=== PATIENT | female | born 1990 | race Caucasian/White ===

== ENCOUNTER → 2017-11-19 16:37 | Outpatient (CLI) | payer BC, SELFPAY ==
[2017-11-19 17:30] LABS: Basophils # 0.1 K/mm3 (0-0.2); Basophils % 0.8 % (0.1-2.0); Eosinophils # 0.1 K/mm3 (0.0-0.4); Eosinophils % 1.1 % (0.1-12.0); Hematocrit 39.2 % (37.0-47.0); Hemoglobin 12.9 g/dL (12.2-16.2); Lymphocytes # 2.6 K/mm3 (0.7-4.5); Lymphocytes % 27.2 K/mm3 (10-50); Mean Corpuscular HGB Conc 32.8 g/dL (31.8-35.4); Mean Corpuscular Hemoglobin 29.4 pg (27.0-31.2); Mean Corpuscular Volume 89.6 fl (81-99); Mean Platelet Volume 8.5 fl (7.4-10.4); Monocytes # 0.4 K/mm3 (0.1-1.0); Monocytes % 3.8 % (1.7-9.3); Neutrophils # 6.3 K/mm3 (1.8-7.8); Neutrophils % 67.1 % (37.0-80.0); Platelet Count 212 K/mm3 (142-424); Red Blood Count 4.38 M/mm3 (4.20-5.40); Red Cell Distribution Width 12.3 % (11.5-17.5); White Blood Count 9.5 K/mm3 (4.8-10.8)
[2017-11-19 17:33] LABS: Activated Partial Thrombo Time 27.7 seconds (23.6-34.0); Fibrinogen 245 mg/dL (204-500); INR 1.04 (0.9-1.1); Prothrombin Time 11.2 seconds (9.4-11.8)
[2017-11-19 18:04] LABS: D-Dimer 141 (0-400)
[2017-11-19 18:39] LABS: Alanine Aminotransferase 14 U/L (12-78); Anion Gap 12.7 mEq/L (5-15); Aspartate Amino Transferase 13 U/L (15-37); Blood Urea Nitrogen 6 mg/dL (7-18); Carbon Dioxide 25 mmol/L (21.0-32.0); Chloride 102 mmol/L (98-107); Creatinine,Serum 0.57 mg/dL (0.55-1.02); Estimated Glomerular Filt Rate > 60 ml/min (>60); GFR (African American) > 60 ML/MIN (>60); Glucose 93 mg/dL (74-106); Potassium 3.7 mmoL/L (3.5-5.1); Sodium 136 mmol/L (136-145); Uric Acid 2.1 mg/dL (2.6-7.2)
[2017-11-21 17:16] LABS: HIV Screen 4th Generation wRfx Non Reactive (Non Reactive); Hepatitis C Antibody <0.1 s/co ratio (0.0-0.9)
== END ==
PROVIDERS: PCP Nurse Practitioner Obstetrics & Gynecology; Visit Provider Nurse Practitioner Obstetrics & Gynecology
DX: Z34.80 Encounter for supervision of other normal pregnancy, unspecified trimester (principal)
CPT/HCPCS: 36415; 80048; 84450; 84460; 84550; 85025; 85378; 85384; 85610; 85730; 86703; 86850; 87380; G0432

== ENCOUNTER → 2018-01-20 14:40 | Outpatient (CLI) | payer BC, SELFPAY ==
--- NOTE | 2018-01-20 14:45 | US_ITS ---
US OB /maternal detail: INDICATION: ITS.REASON: US OB Complete ORDERING PHYSICIAN: Carlos Lopez MD PATIENT AGE: 27 years TECHNIQUE: ultrasound transabdominal scanning. COMPARISON: No previous relevant studies. FINDINGS: Single viable intrauterine gestation. cephalic position. Placenta: posterior placenta grade 1. There is adequate amount fluid. The cervix appears satisfactory. Closed and measuring 4 cm in length. Complete survey performed and was unremarkable on the submitted images as in PACS. No discrete anomalies identified on survey imaging by technologist. Active fetus. Three-vessel cord with satisfactory umbilical cord insertion. 4- chamber heart noted. Survey of brain & ventricles. Face and neck survey unremarkable. Diaphragm and chest views unremarkable. Abdomen: Both kidneys noted and unremarkable. Stomach noted and satisfactory. Spine: Survey of the spine satisfactory with no anomalies identified nor imaged. Both arms and legs noted. Amniotic Fluid: Adequate. Maternal adnexa: No significant findings. Measurements: Average ultrasound age 21w0d. Gestational Age 21w1d. Estimated due date by ultrasound age 0706/02/2018. Estimated weight 400 grams. This is 67 percentile based on last menstrual period BPD = 21w0d OFD = 21w1d HC = 20w2d AC = 22w1d FL = 20w2d Heart Rate = 144 Cerebellum = 20w2d Humerus = 21w2d HC/AC is 1.04( 1.09-1.26). CI is 78% (70-86%). FL/BPD is 66%. FL/AC is 19%. IMPRESSION: Single live fetus in cephalic presentation with average ultrasound age of 21 weeks and 0 days with an estimated due date of 06/02/2018. Fetus is active and anatomy seen within normal limits. Please see above for detail.
== END ==
PROVIDERS: Family Provider Internal Medicine; PCP Nurse Practitioner Obstetrics & Gynecology; Visit Provider Nurse Practitioner Obstetrics & Gynecology
DX: Z36.0 Encounter for antenatal screening for chromosomal anomalies (principal)
CPT/HCPCS: 76811

== ENCOUNTER → 2018-05-04 17:46 | Outpatient (REF) | payer BC, SELFPAY | LOC: LAB 17:46 | PROVIDERS: Visit Provider Nurse Practitioner Obstetrics & Gynecology | DX: Z34.90 Encounter for supervision of normal pregnancy, unspecified, unspecified trimester (principal) | CPT/HCPCS: 86403 ==

== ENCOUNTER 2018-06-03 13:32 | Outpatient (CLI) | payer BC, SELFPAY ==
[2018-06-03 13:42] VITALS: BMI 24.3
[2018-06-03 14:02] VITALS: BP 123/80; PULSE 81; RESP 18; TEMP 36.9; O2SAT 99; BMI 24.4
== END 2018-06-03 16:25 | disposition home or self-care (01) ==
LOC: OBOUT 13:34 → OB 13:34
PROVIDERS: PCP Internal Medicine; Visit Provider Obstetrics & Gynecology
DX: O62.9 Abnormality of forces of labor, unspecified (principal); Z3A.39 39 weeks gestation of pregnancy
CPT/HCPCS: 59025

== ENCOUNTER 2018-06-06 11:48 | Inpatient (IN) ==
--- NOTE | 2018-06-06 12:26 | History & Physical Report ---
OB - H&P: HPI Antepartum - History of Present Illness Chief complaint: Contractions History of present illness: She is a 28-year-old 2 para 1 who is 39+ weeks gestational age. She began having contractions about 2 hours ago and came into labor and delivery. She is found to be 7 cm dilated. - History of Present Criteria for establishing EDC:: LMP confirmed by 1st trimester US Ultrasounds: normal 1st trimester US, normal mid trimester US Obstetrical complications: none H History I have reviewed the patient's past medical history: Yes Medical History: Denies:: Anxiety, Asthma, Diabetes Mellitus Type 2 Laterality Cases: Bilateral: Tonsillectomy Other Surgeries: Yes: Diagnostic Lap. No: Amputation: No Fractures: No - *Social History Smoking Status: Never smoker Alcohol Intake: never Substance Use Type: denies use - Psychiatric History Pschychiatric History:: Denies:: Anxiety *Family Hx:: No significant family history Review of Systems - Review of Systems Review of systems:: pertinent systems reviewed and negative unless documented below Meds Home Medications Medication Instructions Recorded Confirmed Type 1 tab PO QDAY 11/26/17 06/03/18 History vitamin,calcium,knbgtjjc-mrqe-vcqje acid tablet Ferrous Sulfate 325 mg PO DAILY 06/03/18 06/03/18 History Allergies Allergy/AdvReac Type Severity Reaction Status Date / Time No Known Allergies Allergy Verified 06/02/18 09:35 OB - H&P: Exam - Constitutional mild distress - Routine HEENT Exam Head: Present: normocephalic - Routine Neck Exam Present: supple - Routine Respiratory Exam Comments: She is not in any respiratory distress. - Routine Abdominal Exam Present: soft Comments: She is having regular contractions every 2 minutes. Her belly is gravid. OB - A/P Antepartum (1) Normal delivery Current visit: Yes Status: Acute - Additional Plan Plan: expectant management Additional Information:: She is in active labor risa every 2 minutes. The cervix is 7 cm Station -1 and 100% effaced. She has had a previous vaginal delivery and we will expect another delivery today.
--- NOTE | 2018-06-06 12:52 | Procedure Note ---
- Delivery Note Delivery Date:: 06/06/18 Delivery Time:: 12:37 Anesthesia Type: None Was labor medically induced?: No Induction method: none Infant delivered prior to 39 weeks?: No Justification for early elective delivery:: Active Labor at 1 minute: 7 at 5 minutes: 9 AF:: Clear fluid Delivery Procedure:: She is a 28-year-old 2 para 1 who was 40 weeks and 2 days gestational age. She came in in active labor. She progressed from 7 cm to fully dilated quickly and delivered spontaneously a liveborn female child at 12:37 PM in the afternoon of June 06, 2018. On deliver the head the anterior shoulder then delivered followed by the rest the infant's body atraumatically. The nasopharynx and oropharynx were bulb suctioned. We allowed the cord to continue to pulsate for approximately 30 seconds and then doubly clamped the cord. Cord was cut and the infant was then handed off to nurses who assigned Apgars of 7 at 1 minute and 9 at 5 minutes. The baby just required some stimulation and blow-by oxygen. We then obtained cord blood as well as cord gases. She received IV oxytocin and using gentle traction on the cord and countertraction the fundus I was able to easily deliver the placenta intact at 12:40 PM. She had a normal three-vessel cord. There were no perineal or vaginal lacerations. She plans to breast-feed. Estimated blood loss was approximately 400 cc. Placental Delivery Description: Spontaneous
[2018-06-06 13:00] LABS: Basophils # 0.1 K/mm3 (0-0.2); Basophils % 0.4 % (0.1-2.0); Eosinophils # 0.1 K/mm3 (0.0-0.4); Eosinophils % 0.4 % (0.1-12.0); Hematocrit 39.1 % (37.0-47.0); Hemoglobin 13.4 g/dL (12.2-16.2); Lymphocytes % 16.7 K/mm3 (10-50); Mean Corpuscular HGB Conc 34.3 g/dL (31.8-35.4); Mean Corpuscular Hemoglobin 32.3 pg (27.0-31.2); Mean Corpuscular Volume 93.9 fl (81-99); Mean Platelet Volume 8.9 fl (7.4-10.4); Monocytes # 0.5 K/mm3 (0.1-1.0); Monocytes % 3.9 % (1.7-9.3); Neutrophils # 9.2 K/mm3 (1.8-7.8); Neutrophils % 78.6 % (37.0-80.0); Platelet Count 188 K/mm3 (142-424); Red Blood Count 4.16 M/mm3 (4.20-5.40); White Blood Count 11.7 K/mm3 (4.8-10.8)
[2018-06-06 15:22] LABS: Basophils % 0.2 % (0.1-2.0); Eosinophils % 0.1 % (0.1-12.0); Hematocrit 36.1 % (37.0-47.0); Hemoglobin 12.1 g/dL (12.2-16.2); Lymphocytes # 1.3 K/mm3 (0.7-4.5); Lymphocytes % 7.6 K/mm3 (10-50); Mean Corpuscular HGB Conc 33.5 g/dL (31.8-35.4); Mean Corpuscular Hemoglobin 31.1 pg (27.0-31.2); Mean Platelet Volume 9.3 fl (7.4-10.4); Monocytes # 0.4 K/mm3 (0.1-1.0); Monocytes % 2.3 % (1.7-9.3); Neutrophils # 14.7 K/mm3 (1.8-7.8); Neutrophils % 89.7 % (37.0-80.0); Platelet Count 177 K/mm3 (142-424); Red Blood Count 3.89 M/mm3 (4.20-5.40); Red Cell Distribution Width 12.9 % (11.5-17.5); White Blood Count 16.3 K/mm3 (4.8-10.8)
[2018-06-06 15:46] LABS: Lymphocytes % 7 % (10-50); Monocytes % 3 % (2-9); Neutrophils % 89 % (42-76); RBC Morphology Normal; Total Cells Counted 100
[2018-06-07 06:49] LABS: Hematocrit 37.1 % (37.0-47.0); Hemoglobin 12.3 g/dL (12.2-16.2)
--- NOTE | 2018-06-07 09:56 | Progress Note ---
Internal Medicine - PN: Subj *Date: 06/07/18 *Time: 09:54 Interval history: She continues to do well this morning. She is eating and drinking and ambulating. She is breast-feeding. Her lochia is normal. Exam Vital signs and Labs for Last 24 Hours: Temp Pulse Resp BP Pulse Ox 98.4 F 65 18 100/57 98 06/06/18 19:53 06/06/18 19:53 06/06/18 19:53 06/06/18 19:53 06/06/18 19:53 Laboratory Results - last 24 hr 06/06/18 12:30: WBC 11.7 H, RBC 4.16 L, Hgb 13.4, Hct 39.1, MCV 93.9, MCH 32.3 H , MCHC 34.3, RDW 13.0, Plt Count 188, MPV 8.9, Neut % (Auto) 78.6, Lymph % (Auto ) 16.7, Gove % (Auto) 3.9, Eos % (Auto) 0.4, Baso % (Auto) 0.4, Neut # (Auto) 9.2 H, Lymph # (Auto) 2.0, Gove # (Auto) 0.5, Eos # (Auto) 0.1, Baso # (Auto) 0.1 06/06/18 12:30: Blood Type O Positive, Antibody Screen Negative 06/06/18 12:50: Cord ABG pH 7.32 L 06/06/18 15:05: WBC 16.3 H D, RBC 3.89 L, Hgb 12.1 L, Hct 36.1 L, MCV 93.0, MCH 31.1, MCHC 33.5, RDW 12.9, Plt Count 177, MPV 9.3, Neut % (Auto) 89.7 H, Lymph % (Auto) 7.6 L, Gove % (Auto) 2.3, Eos % (Auto) 0.1, Baso % (Auto) 0.2, Neut # ( Auto) 14.7 H, Lymph # (Auto) 1.3, Gove # (Auto) 0.4, Eos # (Auto) 0.0, Baso # ( Auto) 0.0, Total Counted 100, Neutrophils % (Manual) 89 H, Lymphocytes % (Manual ) 7 L, Atypical Lymphs % 1.0, Monocytes % (Manual) 3, Platelet Estimate Normal, RBC Morphology Normal 06/07/18 06:01: Hgb 12.3, Hct 37.1 I & O for Last 24 hours: Intake & Output 06/04/18 06/05/18 06/06/18 06/07/18 11:59 11:59 11:59 11:59 Weight 150 lb - Constitutional no acute distress Assessment and Plan (1) Normal delivery Current visit: Yes Status: Acute Category: Medical Code(s): O80 - Encounter for full-term uncomplicated delivery - Assessment and plan all Dx Assessment and Plan for all problems:: She is doing very well. She is breast-feeding. We will plan to send her home tomorrow.
--- NOTE | 2018-06-08 08:57 | Discharge Summary ---
General - General Admission date:: 06/06/18 Discharge date: 06/08/18 HPI HPI: She is a 28-year-old 2 now para 2 who was 40+ weeks gestational age. She came in in active labor and was found to be 7 cm dilated. Hospital Course Hospital Course: She progressed to full dilation and delivered spontaneously a liveborn female child at 1237 on the afternoon of June 06, 2018. The baby weighed 8 lbs. 11 oz. and was 20 inches long. She had Apgars of 7 at 1 minute and 9 at 5 minutes. There were no perineal or vaginal lacerations. She has done well and has remained afebrile throughout her hospitalization. She is eating and drinking and ambulating. She is breast- feeding. She has O+ blood, she is rubella immune and was group B streptococcus negative. She is discharged home to follow-up with me in approximately 2 weeks time. She is taking jexk-xyi-bpaueig analgesics occasionally. Objective Vital signs: Temp Pulse Resp BP Pulse Ox 98.4 F 68 16 111/65 97 06/07/18 20:11 06/07/18 20:11 06/07/18 20:11 06/07/18 20:11 06/07/18 20:11 no acute distress DS: Diagnosis - Discharge Diagnosis (1) Normal delivery Status: Acute Discharge Plan - Patient Discharge Instructions ACTIVITY: No heavy lifting DIET: continue same diet - Follow up Plan Disposition: Home, Self-[facility] Medications: Home Medications Medication Instructions Recorded Confirmed Type 1 tab PO DAILY 11/26/17 06/07/18 History vitamin,calcium,zfdsxibd-bgrs-qpcvo acid tablet Ferrous Sulfate 325 mg PO DAILY 06/03/18 06/06/18 History Prescriptions/Medication Reconciliation: Continue vitamin,calcium,ssoyzbzj-obvl-oddyp acid tablet 1 tab PO DAILY Ferrous Sulfate 325 mg PO DAILY
[2018-06-08 11:17] VITALS: BP 108/57
[2018-06-09 06:25] LABS: HIV Screen 4th Generation wRfx Non Reactive (Non Reactive)
[2018-06-10 06:15] LABS: Rapid Plasma Reagin Ab Titer Non Reactive (NonRea<1:1)
[2018-06-10 06:16] LABS: Hepatitis B Surface Antigen Negative (Negative)
== END 2018-06-08 10:30 | disposition home or self-care (01) ==
LOC: OBOUT 11:48 → OB 11:51 → OBOUT 12:12 → OB 12:14
PROVIDERS: ADMIT Nurse Practitioner Obstetrics & Gynecology; ATTEND Nurse Practitioner Obstetrics & Gynecology

== ENCOUNTER → 2020-10-26 09:49 | Outpatient (POV) | payer BC, SELFPAY | PROVIDERS: Visit Provider Audiologist | DX: Z00.00 Encounter for general adult medical examination without abnormal findings (principal) ==

== ENCOUNTER 2021-11-27 09:20 | Emergency (ER) | payer BC, SELFPAY ==
[2021-11-27 10:42] VITALS: BP 110/73; PULSE 72; RESP 18; TEMP 37.2; O2SAT 99; BMI 19.3
--- NOTE | 2021-11-27 10:48 | HMH.EDUTC ---
[facility] – [place] Disposition Clinical Impression: Viral upper respiratory illness Disposition: Home, Self-Care Condition on Discharge: Good Instructions: DI for Viral Upper Respiratory Infection -- Adult, DI for Nasal Congestion Additional Instructions: *Monitor Temp, Over the counter Motrin or Tylenol as directed/as needed Tylenol every 4 hours and Motrin every 6 hours (as long as your family doctor has told you that you can take it) for fever or pain. and straight to ER if unable to lower temp less than 101.0 after medication given *Warm salt water gargles may help to soothe the throat *Throat Lozenges *Warm fluids like tea with honey may help to soothe the throat *Sleep elevated *Humidifier/Vaporizer *Flonase 2 sprays in each nostril daily but be aware that it may take 2-3 days before you notice improvement Your throat swab was sent for culture. Those results are typically sent to your primary care. Be sure to follow up in 2-3 days with your family doctor/primary care physician if no improvement so they can review those result and treat if necessary. If you don?t have a primary care doctor, I recommend you get one but in the mean time, you will have to return to a walk in clinic Follow up IMMEDIATELY for new or worsening symptoms or no Noticeable improvement over the next 48-72 hours. 911 for difficulty breathing or swallowing You were tested for today for COVID19 your test result should be back in the next 24-48 hours, you check your results on the [facility] my health portal if you have trouble logging on or seeing your results you may call You was given a handout with instructions for Self Quarantine and Self isolation for while you wait on test results and what to do if they are positive If you are positive the Health Dept will be contacting you also Make sure to take your Vitamins Vit. C Vit D and Zinc if you can take them Follow up with Eye Doctor for exam if you continued to have pain/pressure behind your eyes Prescriptions: Fluticasone Propionate [Flonase 50mcg nasal spray 16gm] 1 spr NS DAILY #1 each Transmission Status: Received by [facility] Referrals: David Campbell [Primary Care Provider] - As needed [facility] [Other] Forms: Work/School Release Time of Disposition: 11:02 Medical Decision Making - Jack Inquiry Pt receiving controlled substance: No Jack was queried for this patient: No Vital Signs: 11/27/21 10:42 11/27/21 11:14 Temperature 98.9 F 98.9 F Temperature Source Oral Pulse Rate 72 Pulse Rate [Left Radial] 72 Respiratory Rate 18 18 Blood Pressure 110/73 Blood Pressure [Left Arm] 110/73 Blood Pressure Mean [Left Arm] 85 Blood Pressure Source [Left Arm] Automatic Cuff Blood Pressure Position [Left Arm] Sitting 02 Sat by Pulse Oximetry 99 Oxygen Delivery Method Room Air - Lab Data Lab results reviewed: Yes: I reviewed the patient's lab results. Lab Results 11/27/21 10:40: Influenza Type A Ag Negative, Influenza Type B Ag Negative 11/27/21 10:40: Strep Scn Rapid Clinic Negative Orders (Tests/Meds): ORDERS Category Date Time Status Covid-19 Nasal PCR ([facility]) Routine Lab 11/27/21 10:40 Received Strep Screen Confirmation Stat Micro 11/27/21 10:40 Received [facility] UTC HPI - General Stated complaint: sore throat, cough, runny nose, PETERS Time Seen by Provider: 11/27/21 10:49 Mode of Arrival: Ambulatory Source of Information: Patient Limitations: No Limitations Description of Symptoms (Recalled from Triage Doc. by RN): C/O pain with eye movement, dull PETERS, sore throat, runny nose since Friday HEENT Symptoms (Recalled from RN notes): Yes (PETERS, sore throat, runny nose) Resp Symptoms (Recalled from RN notes): No Skin Symptoms (Recalled from RN notes): No MS Symptoms (Recalled from RN notes): No Functional Status (Recalled from RN notes): n/a - History of Present Illness Provider Complaint: Patient states that she started feeling bad on Friday with body aches an
[2021-11-27 10:55] LABS: UTC Influenza A Antigen Negative (Negative); UTC Influenza B Antigen Negative (Negative); UTC Strep Screen (Rapid) Negative (Negative)
[2021-11-27 11:14] VITALS: BP 110/73; PULSE 72; RESP 18; TEMP 37.2; O2SAT 99
== END 2021-11-27 11:15 | disposition home or self-care (01) ==
PROVIDERS: Emergency Provider Nurse Practitioner; PCP Internal Medicine
DX: U07.1 COVID-19 (principal)
CPT/HCPCS: 87804; 87880; 99203; C9803; G0463; U0003; U0005

== ENCOUNTER → 2022-01-22 10:27 | Outpatient (CLI) | payer BC, SELFPAY ==
--- NOTE | 2022-01-22 10:36 | US_ITS ---
FINAL REPORT CLINICAL HISTORY: for dates FINDINGS: US PREG /MATERNAL <14WKS ODAYS There is a single living intrauterine . A yolk sac is identified. Cardiac activity is confirmed at 157 beats per minute. [place]-rump length is 1.3 cm consistent with 7 weeks 4 days. The right ovary measures 3.0 x 2.4 x 2.4 cm. The left ovary measures 3.2 x 2.7 x 2.5 cm. There is a 2.3 cm mass in the left ovary that may represent a complex cyst/corpus luteum cyst. IMPRESSION: Single living intrauterine with an estimated gestational age of 7 weeks 5 days. 2.3 cm mass in the left ovary may represent a complex cyst/corpus luteum cyst. Reviewed, Interpreted and Dictated by Lizandro Serrano III, MD Transcribed by Beau Dugan Authenticated by Lizandro Serrano III, MD on 01/22/2022 12:29:49 PM [facility]
[2022-01-22 11:57] LABS: Basophils # 0.1 K/mm3 (0-0.2); Basophils % 1.3 % (0.1-2.0); Eosinophils # 0.1 K/mm3 (0.0-0.4); Eosinophils % 1.1 % (0.1-12.0); Hematocrit 37.8 % (37.0-47.0); Hemoglobin 12.6 g/dL (12.2-16.2); Lymphocytes # 1.8 K/mm3 (0.7-4.5); Lymphocytes % 20.5 % (10-50); Mean Corpuscular HGB Conc 33.3 g/dL (31.8-35.4); Mean Corpuscular Hemoglobin 31.6 pg (27.0-31.2); Mean Corpuscular Volume 94.8 fl (81-99); Mean Platelet Volume 10.1 fl (7.4-10.4); Monocytes # 0.4 K/mm3 (0.1-1.0); Monocytes % 4.3 % (1.7-9.3); Neutrophils # 6.2 K/mm3 (1.8-7.8); Neutrophils % 72.9 % (37.0-80.0); Platelet Count 207 K/mm3 (142-424); Red Blood Count 3.98 M/mm3 (4.20-5.40); Red Cell Distribution Width 13.2 % (11.5-17.5); White Blood Count 8.6 K/mm3 (4.8-10.8)
[2022-01-23 08:18] LABS: HIV Screen 4th Generation wRfx Non Reactive (Non Reactive)
[2022-01-23 11:14] LABS: Hepatitis B Surface Antigen Negative (Negative); Hepatitis C Antibody <0.1 s/co ratio (0.0-0.9); Rapid Plasma Reagin Ab Titer Non Reactive (NonRea<1:1)
[2022-01-24 07:35] LABS: HSV 2 IgG, Type Spec <0.91 index (0.00-0.90); Rubella Antibodies, IgG 3.96 index (Immune >0.99)
== END ==
PROVIDERS: PCP Internal Medicine; Visit Provider Nurse Practitioner Obstetrics & Gynecology
DX: Z34.90 Encounter for supervision of normal pregnancy, unspecified, unspecified trimester (principal)
CPT/HCPCS: 36415; 76801; 85025; 86592; 86695; 86703; 86762; 86790; 86850; 87340; 87380; G0432

== ENCOUNTER → 2022-04-22 09:32 | Outpatient (CLI) | payer BC, SELFPAY ==
--- NOTE | 2022-04-22 09:33 | US_ITS ---
FINAL REPORT CLINICAL HISTORY: US OB COMPLETE, 20wk+ Anatomy Scan FINDINGS: There is a single live intrauterine gestation. Presentation is cephalic. The cervix is closed and measures 3.6 cm. Placenta is anterior, grade 1. movement is noted. Heart rate is measured at 135 beats per minute. Three-vessel cord with satisfactory umbilical cord insertion. Four-chamber heart is noted. brain and ventricles are unremarkable. Chest and diaphragm are unremarkable. ABDOMEN: Both kidneys are unremarkable. Stomach is unremarkable. SPINE: No anomalies identified. AMNIOTIC FLUID: Appropriate amount. MEASUREMENTS: ULTRASOUND AGE: 21 weeks 0 days. GESTATION AGE: 20 weeks 3 days. ESTIMATED WEIGHT: 370 g GROWTH PERCENTILE: 60% BPD: 5.1 cm corresponding with 21 weeks 3 days. OFD: 6.5 cm corresponding with 21 weeks 4 days. HC: 18.3 cm corresponding with 20 weeks 5 days. AC: 15.9 cm corresponding with 21 weeks 1 days. FL: 3.3 cm corresponding with 20 weeks 2 days. CEREBELLUM: 2.1 cm corresponding with 20 weeks 6 days. HUMERUS: 3.2 cm corresponding with 20 weeks 5 days. HC/AC: 1.15 CI: 78% FL/BPD: 64% FL/AC: 20% IMPRESSION: Single living IUP with an ultrasound age of 21 weeks 0 days. No anomalies noted. Reviewed, Interpreted and Dictated by Lizandro Serrano III, MD Transcribed by Carol Morelos Authenticated and [facility]
== END ==
PROVIDERS: PCP Internal Medicine; Visit Provider Nurse Practitioner Obstetrics & Gynecology
DX: Z36.0 Encounter for antenatal screening for chromosomal anomalies (principal)
CPT/HCPCS: 76811

== ENCOUNTER → 2022-07-08 11:37 | Outpatient (CLI) | payer BC, SELFPAY ==
[2022-07-08 12:27] LABS: Basophils # 0.1 K/mm3 (0-0.2); Basophils % 0.6 % (0.1-2.0); Eosinophils # 0.1 K/mm3 (0.0-0.4); Eosinophils % 0.6 % (0.1-12.0); Hematocrit 37.5 % (37.0-47.0); Hemoglobin 11.9 g/dL (12.2-16.2); Lymphocytes # 1.8 K/mm3 (0.7-4.5); Lymphocytes % 17.7 % (10-50); Mean Corpuscular HGB Conc 31.6 g/dL (31.8-35.4); Mean Corpuscular Hemoglobin 31.8 pg (27.0-31.2); Mean Corpuscular Volume 100.5 fl (81-99); Monocytes # 0.4 K/mm3 (0.1-1.0); Monocytes % 4.1 % (1.7-9.3); Neutrophils # 7.9 K/mm3 (1.8-7.8); Neutrophils % 77.1 % (37.0-80.0); Platelet Count 184 K/mm3 (142-424); Red Blood Count 3.73 M/mm3 (4.20-5.40); White Blood Count 10.2 K/mm3 (4.8-10.8)
== END ==
PROVIDERS: PCP Internal Medicine; Visit Provider Nurse Practitioner Obstetrics & Gynecology
DX: N92.0 Excessive and frequent menstruation with regular cycle (principal)
CPT/HCPCS: 36415; 85025

== ENCOUNTER → 2022-08-15 08:24 | Outpatient (CLI) | payer BC, SELFPAY | PROVIDERS: Visit Provider Obstetrics & Gynecology | DX: Z34.90 Encounter for supervision of normal pregnancy, unspecified, unspecified trimester (principal); Z3A.35 35 weeks gestation of pregnancy | CPT/HCPCS: 86403 ==

== ENCOUNTER 2022-09-16 04:05 | Inpatient (IN) | payer BC, SELFPAY ==
[2022-09-16 03:42] VITALS: BP 104/61; PULSE 82; RESP 18; TEMP 36.8; O2SAT 100; BMI 25.2; BMI 25.3
[2022-09-16 04:15] LABS: Basophils # 0.1 K/mm3 (0-0.2); Eosinophils # 0.1 K/mm3 (0.0-0.4); Eosinophils % 0.7 % (0.1-12.0); Hematocrit 41.7 % (37.0-47.0); Hemoglobin 13.7 g/dL (12.2-16.2); Lymphocytes # 2.6 K/mm3 (0.7-4.5); Lymphocytes % 22.4 % (10-50); Mean Corpuscular HGB Conc 32.9 g/dL (31.8-35.4); Mean Corpuscular Hemoglobin 30.8 pg (27.0-31.2); Mean Corpuscular Volume 93.8 fl (81-99); Mean Platelet Volume 10.2 fl (7.4-10.4); Monocytes # 0.4 K/mm3 (0.1-1.0); Monocytes % 3.2 % (1.7-9.3); Neutrophils # 8.5 K/mm3 (1.8-7.8); Neutrophils % 72.7 % (37.0-80.0); Platelet Count 201 K/mm3 (142-424); Red Blood Count 4.45 M/mm3 (4.20-5.40); Red Cell Distribution Width 13.3 % (11.5-17.5); White Blood Count 11.7 K/mm3 (4.8-10.8)
--- NOTE | 2022-09-16 04:39 | P.HP_ITS ---
History of Present Illness *Admission Date: 09/16/22 *Reason for visit:: contractions *History of present illness: 32 yo @ 41 02/21 care at [facility]-- Dr. John PISANO 09/05/22 Presented in active labor with complete dilation AROM performed with meconium stained amniotic fluid [facility] Medical History Hemorrhoids Social History Smoking Status: Never smoker alcohol intake: current substance use type: denies use current occupational status: employed Travel in the last 8 weeks: None household members: family housing: house Review of Systems Constitutional Constitutional: Reports system reviewed and no additional complaints, except as documented and Denies headache(s) ENT Ears, Nose, Mouth, and Throat: Denies headache(s) *Genitourinary Genitourinary: Denies abnormal vaginal bleeding *Neurologic Neurologic: Denies headache(s) and Denies other visual disturbances Meds Home Medications and Allergies Home Medications Medication Instructions Recorded Confirmed Type prenat.vits,john,ebp-odtd-aryyy 1 tab PO DAILY 01/17/22 09/12/22 History New Prescriptions to Start Prescriptions: Allergies Allergy/AdvReac Type Severity Reaction Status Date / Time No Known Allergies Allergy Verified 09/12/22 08:34 Exam Data for Last 24 hours Vital signs and Labs for Last 24 Hours: Laboratory Results - last 24 hr 09/16/22 04:00: WBC 11.7 H, RBC 4.45, Hgb 13.7, Hct 41.7, MCV 93.8, MCH 30.8, MCHC 32.9, RDW 13.3, Plt Count 201, MPV 10.2, Neut % (Auto) 72.7, Lymph % (Auto) 22.4, Nicholas % (Auto) 3.2, Eos % (Auto) 0.7, Baso % (Auto) 1.0, Neut # (Auto) 8.5 H, Lymph # (Auto) 2.6, Nicholas # (Auto) 0.4, Eos # (Auto) 0.1, Baso # (Auto) 0.1 I & O for Last 24 hours: Intake & Output 09/13/22 09/14/22 09/15/22 09/16/22 11:59 11:59 11:59 11:59 Weight 156 lb Constitutional Constitutional: no acute distress *Routine HEENT Exam Head: Present normocephalic Eye: Absent conjunctival icterus or scleral injection ENT: Present mucous membranes moist *Routine Neck Exam Neck: Present supple *Routine Respiratory Exam Respiratory: Present CTA bilaterally; Absent respiratory distress *Routine Cardiovascular Exam Cardiovascular: Present RRR *Routine Abdominal Exam Abdominal: Present soft; Absent tenderness or distended *Routine Rectal Exam Rectal:: deferred *Routine Genitalia Exam Genitalia:: normal female Comment:: complete & +1 AROM with meconium stained amniotic fluid *Routine Extremities Exam Extremities: Present edema (1+) *Routine Skin Exam Skin: Present intact and dry *Routine Neurological Exam Neurological: Present alert and oriented X3 Assessment and Plan *Assessment and plan (1) 41 weeks gestation of : Status: Acute Category: Medical Code(s): O48.0 - Post-term ; Z3A.41 - 41 weeks gestation of (2) Post-dates : Status: Acute Category: Medical Code(s): O48.0 - Post-term (3) Active labor: Status: Acute Category: Medical Plan Admission for active labor at 41 47 status reassuring
--- NOTE | 2022-09-16 04:44 | EXP.DN ---
Delivery Note Delivery Date:: 09/16/22 Delivery Time:: 04:23 Anesthesia Type: None Was labor medically induced?: No Gestational age (weeks): 41 Infant delivered prior to 39 weeks?: No Infant Gender: Female at 1 minute: 9 at 5 minutes: 9 Delivery Procedure:: Spontaneous vaginal delivery of vigorous, live born female over intact perineum. Delivery uncomplicated No nuchal cord No shoulder dystocia with delivery Infant placed in MATT immediately after delivery, with standard nursing assessment performed Apgars: 9 & 9 Placenta spontaneously expressed and examined; noted to be complete/intact. Vulva, vagina, and cervix inspected; no lacerations present EBL: 300 cc All sponge/needle/instrument counts correct at conclusion of procedure Mother and stable to recovery Placental Delivery Description: Spontaneous
[2022-09-16 05:04] LABS: Coronavirus 19, PCR Not Detected (NotDetected); Influenza A, PCR Not Detected (NotDetected); Influenza B, PCR Not Detected (NotDetected)
[2022-09-16 08:56] VITALS: BP 123/69; PULSE 84; RESP 18; TEMP 36.8; O2SAT 98
[2022-09-16 16:20] VITALS: BP 104/62; PULSE 76; RESP 16; TEMP 36.8; O2SAT 98
[2022-09-17 08:38] LABS: Hematocrit 32.6 % (37.0-47.0); Hemoglobin 11.2 g/dL (12.2-16.2)
[2022-09-17 08:45] VITALS: BP 107/58; PULSE 71; RESP 18; TEMP 36.6; O2SAT 98
--- NOTE | 2022-09-17 08:56 | EXP.DC.SUM ---
General Admission date:: 09/16/22 Discharge date: 09/17/22 HPI HPI HPI: 32 yo @ 41 02/21 care at [facility]-- Dr. John PISANO 09/05/22 Presented in active labor with complete dilation AROM performed with meconium stained amniotic fluid Hospital Course Hospital Course Hospital Course: She arrived in active labor at 41 weeks and 4 days and was found to be fully dilated. She had an amniotomy with meconium stained fluid. She delivered spontaneously a liveborn female child at 4:24 AM on the morning of September 16, 2022. The baby was a liveborn female child weighing 9 pounds 7 ounces and she was 21 inches long. She had Apgars of 9 at 1 minute and 9 at 5 minutes. She has done well and has remained afebrile throughout her hospitalization. She is eating and drinking and ambulating. She is breast-feeding. Her lochia is normal. She has O+ blood, she is rubella immune and was group B streptococcus negative. Her steel tier is Dr. Kang. She is discharged home to follow-up with me in approximately 2 weeks time. She will continue with her vitamins and iron. She is given the usual instructions with suspected limiting her activity, driving and sexual activity. Her condition on discharge is stable and improved. Exam Data for Last 24 hours Vital signs and Labs for Last 24 Hours: Temp Pulse Resp BP Pulse Ox 98.2 F 76 16 104/62 L 98 09/16/22 16:20 09/16/22 16:20 09/16/22 16:20 09/16/22 16:20 09/16/22 16:20 Laboratory Results - last 24 hr 09/17/22 08:10: Hgb 11.2 L, Hct 32.6 L I & O for Last 24 hours: Intake & Output 09/14/22 09/15/22 09/16/22 09/17/22 11:59 11:59 11:59 11:59 Weight 157 lb Constitutional Constitutional: no acute distress *Routine HEENT Exam Head: Present normocephalic *Routine Respiratory Exam Respiratory: Present normal respiratory effort Results Data Completed and Pending Labs on day of discharge: Labs from last 24 hours 09/17/22 08:10 Hgb 11.2 L Hct 32.6 L DS: Diagnosis Discharge Diagnosis (1) 41 weeks gestation of : Status: Acute (2) Post-dates : Status: Acute (3) Active labor: Status: Acute (4) Normal delivery: Status: Acute Meds Home Medications and Allergies Home Medications Medication Instructions Recorded Confirmed Type prenat.vits,john,tby-cvtl-hbnwu 1 tab PO DAILY Diet supplement 01/17/22 09/16/22 History New Prescriptions to Start Prescriptions: Allergies Allergy/AdvReac Type Severity Reaction Status Date / Time No Known Allergies Allergy Verified 09/12/22 08:34 Discharge Plan Disposition Patient Disposition: Home, Self-Care Discharge Order Discharge Orders: Discharge Order (Routine); Ordered 09/17/22 Ordered By: Carlos Lopez Follow up Plan Prescriptions/Medication Reconciliation: Continued prenat.vits,john,awd-dlit-hgvfw Tablet 1 tab PO DAILY Problem Reconciliation Problems Reviewed?: Yes Patient Discharge Instructions ACTIVITY: No heavy lifting DIET: continue same diet Additional Instructions: Nothing in the vagina for 6 weeks No tub baths Drink plenty of fluids Patient Instructions: Depression, Hemorrhage, DI for Labor and Delivery, Vaginal , DI for Pre-eclampsia, H Post Discharge Instructions, Preventing the Spread of Coronavirus Discharge Instructions Providers Primary Care Provider: David Campbell Admit Provider: Niecy Chatterjee Attending Provider: Niecy Chatterjee
== END 2022-09-17 11:48 | disposition home or self-care (01) | DRG 807 ==
LOC: OBOUT 04:06 → OB 04:06
PROVIDERS: Admitting Provider Obstetrics & Gynecology; PCP Internal Medicine; Visit Provider Obstetrics & Gynecology
DX: O48.0 Post-term pregnancy (principal); Z37.0 Single live birth; Z3A.41 41 weeks gestation of pregnancy; O77.0 Labor and delivery complicated by meconium in amniotic fluid
CPT/HCPCS: 59409; 59025; 85014; 85018; 85025; 86850; C9803; U0003; U0005